=== PATIENT | female | born 1980 | race Caucasian/White ===

== ENCOUNTER → 2017-06-02 | Outpatient (CLI) | payer BC | LOC: FIMAGING 13:40 | PROVIDERS: ATTEND Family Medicine | DX: R22.1 Localized swelling, mass and lump, neck (principal) ==

== ENCOUNTER 2017-07-26 21:16 | Emergency (ER) | payer BC ==
--- NOTE | 2017-07-26 21:37 | EDPHY ---
H & P Smoking Status: Never smoked Time Seen by Provider: 07/26/17 21:28 HPI/ROS: CHIEF COMPLAINT: Pain and swelling left arm. HISTORY OF PRESENT ILLNESS: 37-year-old female presents to the emergency department with concerns about possible blood clot in her left arm. The patient has a history of a left elbow dislocation 2 weeks ago while skiing. This was relocated and she followed up with orthopedics. Since that time she has been in a brace and has no mobility of her left arm. When she was placed in the wrap back on her left arm she noticed that it felt a bit swollen and more painful. She was sent to the emergency department to rule out DVT. No previous history of DVTs. She denies feeling short of breath. Denies pleuritic chest pain. Denies headache. Denies neck or back pain. Denies any other reported trauma. REVIEW OF SYSTEMS: Constitutional: No fever, no chills. Eyes: No double or blurry vision. ENT: No sore throat. Respiratory: No cough, no shortness of breath. Cardiac: No chest pain. Gastrointestinal: No abdominal pain, vomiting or diarrhea. Genitourinary: No dysuria. Musculoskeletal: No neck or back pain. Skin: No rashes. Neurological: No headache. (Paul Richmond) Past Medical/Surgical History: Left elbow dislocation 2 weeks ago requiring immobilization without surgery. ( Paul Richmond) Social History: (Paul Richmond) Physical Exam: General Appearance: Alert, no distress. Eyes: Pupils equal and round. Extraocular motions are all intact. ENT: Mouth: Mucous membranes moist. Respiratory: No wheezing, rhonchi, or rales, lungs are clear to auscultation. Cardiovascular: Regular rate and rhythm. Gastrointestinal: Abdomen is soft and nontender, no masses, no rebound or guarding, bowel sounds normal. Neurological: Alert and oriented x 3, cranial nerves II through XII grossly intact Skin: Warm and dry, no rashes. Musculoskeletal: Nontender to palpate along the cervical, thoracic or lumbar spine. Neck is supple. Extremities: The brace from the left elbow was removed. The Jg wrap was removed. The patient has some mild swelling noted to the medial aspect of the left forearm. Minimally tender to palpate. She has really no pain with palpation over the humerus. No ecchymosis noted. Normal sensation to light touch with normal 2 point discrimination. Full range of motion of her left hand. Limited range of motion of the left wrist secondary to pain and immobilization of the left elbow. Full range of motion of the right upper extremity and lower extremities bilaterally. Psychiatric: Patient is oriented X 3, there is no agitation. (Paul Richmond) Constitutional: Initial Vital Signs Temperature (C) 36.5 C 07/26/17 21:17 Heart Rate 85 07/26/17 21:17 Respiratory Rate 18 07/26/17 21:17 Blood Pressure 111/69 07/26/17 21:17 O2 Sat (%) 98 07/26/17 21:17 O2 Delivery Mode Room Air Allergies/Adverse Reactions: Sulfa (Sulfonamide Antibiotics) Allergy (Verified 07/26/17 21:20) Medical Decision Making - Diagnostics Imaging: Discussed imaging studies w/ all source intelligence analyst Radiologist - Diagnostics Imaging Results: Imaging Impressions Extremity Venous Study 07/26/17 21:33 Impression: There is no sonographic evidence of venous thrombosis in the left arm. Findings were discussed with PAUL RICHMOND PA-C at 23:03, on 07/26/2017. ED Course/Re-evaluation: Ultrasound has been ordered of the left upper extremity to rule out DVT. Ultrasound was negative for clot. The patient has a scheduled follow-up appointment for Monday with orthopedic surgeon which I encouraged her to keep. She will return if she has any other concerns. (Paul Richmond) Differential Diagnosis: Including but not limited to contusion, hematoma, DVT (Paul Richmond) Other Provider: PHYSICIAN DOCUMENTATION: The patient was evaluated and managed by the Physician [employer]. My co- signature indicates that I have reviewed this chart and I agree with the findings and plan of care as documented. I am the secondary supervising physician. (Parvez Ireland) Departure - Departure Disposition: Home, Routine, Self-Care Clinical Impression: Left forearm pain Condition: Good Instructions: Arm Pain (ED) Additional Instructions: Keep brace on until scheduled follow up with orthopedic surgeon. Return if you develop worsening swelling, shortness of breath, chest pain, or if you feel worse in any way. Referrals: Ivana Castellano MD [Medical Doctor] - As per Instructions
[2017-07-26 23:13] VITALS: BP 108/63; PULSE 73; RESP 16; TEMP 97.9; O2SAT 96
== END 2017-07-26 23:12 | disposition home or self-care (01) ==
DX: M79.632 Pain in left forearm (principal)